=== PATIENT | female | born 1950 | race African-American/Black ===

== ENCOUNTER 2020-11-11 12:59 | Outpatient (CLI) | payer MEDICARE | END 2020-11-11 13:00 | disposition home or self-care (01) | LOC: BICRAD 12:59 | PROVIDERS: ATTEND Internal Medicine Rheumatology | DX: M17.0 Bilateral primary osteoarthritis of knee (principal) ==

== ENCOUNTER 2021-02-03 10:28 | Outpatient (CLI) | payer MEDICARE ==
[2021-02-04 11:22] LABS: SARS-CoV-2 PCR by NAA Not Detected (NotDetected)
== END 2021-02-03 10:29 | disposition home or self-care (01) ==
LOC: LABBT 10:28
PROVIDERS: ATTEND Internal Medicine Gastroenterology
DX: Z01.812 Encounter for preprocedural laboratory examination (principal); Z20.822 Contact with and (suspected) exposure to COVID-19
CPT/HCPCS: U0003; U0005

== ENCOUNTER 2021-02-08 07:49 | Day surgery (SDC) | payer MEDICARE ==
[2021-02-07 10:39] VITALS: BMI 50.3
[2021-02-08] MEDS ORDERED: PROPOFOL 200 MG/20 ML VIAL ONE (09:22)
== END 2021-02-08 10:35 | disposition home or self-care (01) ==
LOC: SDC 07:49
PROVIDERS: ATTEND Internal Medicine Gastroenterology
PROC: 0DBN8ZX Excision of Sigmoid Colon, Via Natural or Artificial Opening Endoscopic, Diagnostic (ICD-10-PCS; principal; 2021-02-08)
PROC: 0DBL8ZX Excision of Transverse Colon, Via Natural or Artificial Opening Endoscopic, Diagnostic (ICD-10-PCS; 2021-02-08)
DX: Z12.11 Encounter for screening for malignant neoplasm of colon (principal); D12.3 Benign neoplasm of transverse colon; K63.5 Polyp of colon; K57.30 Diverticulosis of large intestine without perforation or abscess without bleeding; E11.9 Type 2 diabetes mellitus without complications; I10 Essential (primary) hypertension; M10.9 Gout, unspecified; J45.909 Unspecified asthma, uncomplicated; Z79.899 Other long term (current) drug therapy; Z98.1 Arthrodesis status
CPT/HCPCS: 36416; 88305; J2704